=== PATIENT | female | born 1985 | race Caucasian/White ===

== ENCOUNTER 2017-08-24 23:20 | Emergency (ER) | payer BC ==
[~2017-08-24] VITALS: Ht 160 cm; Wt 58.3 kg
[~2017-08-24 23:20] MED LIST: BCPILLS PO; CHLO1TAB47 PO
[2017-08-24 23:24] VITALS: TEMP 36.8; Ht 160 cm; Wt 58.3 kg
[2017-08-25] MEDS ORDERED: SERT25TA PO
--- NOTE | 2017-08-25 00:23 | EMERGENCY ROOM VISIT NOTE ---
History First contact with patient: 23:28 Chief Complaint: NASAL PAIN/INJURY Stated Complaint: CHILD FELL ONTO HER NOSE,HARD TO BREATHE History of Present Illness The patient is a 32 year old female who presents to the Emergency Room with complaints of nasal pain. The patient states that she was getting her son ready for bed and he jumped on her, striking her nose with his leg. She reports pain in the nose which is rated an 8/10. She reports some difficulty breathing. Her states that there was some clear fluid leaking out of the nose initially. She denies any loss of consciousness, nausea/vomiting or neck pain. Review of Systems A complete 10 point review of systems was reviewed with the patient with pertinent positives and negatives as per history of present illness. All else were negative. Past Medical/Surgical History Medical Problems: (1) Abdominal pain affecting (2) Headache (3) Family History Cancer Diabetes mellitus FH: heart disease Social History Smoking Status: Never Smoker Drug Use: none Marital Status: Housing Status: lives with family Current/Historical Medications Scheduled Control Pills ( Control Pills), 1 TAB PO DAILY Sertraline (Zoloft), 25 MG PO DAILY Physical Exam Vital Signs Date Time Temp Pulse Resp B/P (MAP) Pulse Ox O2 Delivery O2 Flow Rate FiO2 08/25/17 00:29 66 18 118/72 100 08/24/17 23:24 36.8 58 20 135/92 100 Room Air Physical Exam VITALS: Vitals are noted on the nurse's note and reviewed by myself. Vital signs stable. GENERAL: This is a 32-year-old female, in no acute distress, nondiaphoretic, well-developed well-nourished. SKIN: The skin was without rashes, erythema, edema, or bruising. HEAD: Normocephalic atraumatic. EARS: External auditory canals clear, tympanic membranes pearly godoy without erythema or effusion bilaterally. EYES: Pupils equal round and reactive to light and accommodation. Conjunctivae without injection, sclerae without icterus. Extraocular movements intact. NOSE: No deformity. Tenderness over the bridge of the nose. No septal hematoma. MOUTH: Mucous membranes moist. NECK: Supple without nuchal rigidity. Cervical spine is nontender. HEART: Regular rate and rhythm without murmurs gallops or rubs. LUNGS: Clear to auscultation bilaterally without wheezes, rales or rhonchi. NEURO: Patient was alert and oriented to person place and time. Medical Decision & Procedures ER Provider Diagnostic Interpretation: CT HEAD: No acute intracranial abnormality identified. CT FACIAL: No acute facial fracture identified. No definite nasal bone fracture. Rightward deviation of the nasal septum with rightward boniness per. Small polyp versus mucous retention cyst in the right maxillary sinus. Mild mucosal thickening in the right maxillary sinus. Minimal mucosal thickening in the left maxillary sinus and right sphenoid sinus. Radiologist: Nelson Joe MD Medical Decision Differential diagnosis includes fracture, contusion, septal hematoma, among others. The patient was evaluated as above. CT of the head and facial bones were performed and read by radiology with no obvious nasal fractures. Patient was advised of this. Conservative measures were discussed with the patient. She verbalized understanding of my assessment and treatment plan and was discharged home in good condition. Medication Reconcilliation Current Medication List: was personally reviewed by me Blood Pressure Screening Patient's blood pressure: Normal blood pressure Impression Primary Impression: Nasal contusion Departure Information Dispostion Home / Self-Care Condition GOOD Referrals Jamal Kim M.D.([facility]) (PCP) Patient Instructions My [facility] Additional Instructions For pain control, you can use the following [id number] medicines (if >12 yo): - Regular strength (325mg/tab) Tylenol (acetaminophen) 2 tabs every 4-6 hours as needed. Do not exceed 12 tablets in a 24 hour period. Avoid taking more than 4 grams (4000 mg) of Tylenol per day. This includes any other sources of acetaminophen you may take on a regular basis. - Regular strength (200 mg/tab) Advil (ibuprofen) 1-2 tabs every 4-6 hours as needed. Do not exceed a dose of 3200 mg per day. Apply ice to the nose frequently to help reduce swelling and pain. Follow-up with your primary care provider or plastic surgery if there is any abnormality of the nose in 1-2 weeks.
[2017-08-25 00:29] VITALS: BP 118/72; PULSE 66; O2SAT 100
--- NOTE | 2017-08-25 06:12 | DIAGNOSTIC IMAGING REPORT ---
HEAD WITHOUT CONTRAST (CT) CT DOSE: HISTORY: Trauma head injury, nasal pain TECHNIQUE: Multiaxial CT images of the head were performed without the use of intravenous contrast. A dose lowering technique was utilized adhering to the principles of ALARA. Comparison: None. Findings: The paranasal sinuses and mastoid air cells are clear. The calvarium and skull base are intact. The ventricles and sulci are within normal limits. There is no mass, hematoma, midline shift, or acute infarct. Impression: No acute intracranial abnormality. The above report was generated using voice recognition software. It may contain grammatical, syntax or spelling errors. Electronically signed by: Foreign Davalos M.D. 08/25/2017 6:11 AM Dictated Date/Time: 08/25/2017 6:10 AM
--- NOTE | 2017-08-25 06:13 | DIAGNOSTIC IMAGING REPORT ---
FACIAL BONES-MXILLOFAC WITHOUT CT DOSE: 732.24 mGy.cm HISTORY: Trauma head injury, nasal pain TECHNIQUE: Multiaxial CT images of the maxillofacial region were performed and reformatted in the coronal plane without the use of contrast. A dose lowering technique was utilized adhering to the principles of ALARA. COMPARISON: None. FINDINGS: The visualized cervical spine, skull base, pterygoid plates, nasal bones, lamina papyracea, orbital floors, mandible, and zygomatic arches are intact. No fractures. The orbits are unremarkable. Mild scattered mucosal thickening of all major sinuses. Mild hypertrophic changes of the nasal turbinates. Moderate nasal septal displacement to the right. No acute bony abnormality. IMPRESSION: No acute bony abnormality. Mild mucosal thickening of the sinuses. The above report was generated using voice recognition software. It may contain grammatical, syntax or spelling errors. Electronically signed by: Foreign Davalos M.D. 08/25/2017 6:12 AM Dictated Date/Time: 08/25/2017 6:11 AM
== END 2017-08-25 00:30 | disposition home or self-care (01) ==
LOC: C.EDB 23:21
DX: S00.33XA Contusion of nose, initial encounter (principal); W51.XXXA Accidental striking against or bumped into by another person, initial encounter; Z80.9 Family history of malignant neoplasm, unspecified; Z83.3 Family history of diabetes mellitus; Z79.3 Long term (current) use of hormonal contraceptives; Z79.899 Other long term (current) drug therapy

== ENCOUNTER 2019-12-20 03:47 | Inpatient (IN) ==
[2019-12-20] MEDS ORDERED: OXYTOCIN 30 UNITS/500 ML BAG IV PRN ×2 (04:40→10:49)
[2019-12-20 06:07] LABS: Hematocrit (blood only) 38.3 % (37-47); Hemoglobin 13.1 g/dL (12.0-16.0); Mean Corpuscular Hemoglobin 30.3 pg (25-34); Mean Corpuscular Hgb Conc 34.2 g/dL (32-36); Mean Corpuscular Volume 88.7 fL (80-100); Mean Platelet Volume 13.4 fL (7.4-10.4); Platelet Count 127 K/uL (130-400); RDW Standard Deviation 45.7 fL (36.4-46.3); Red Blood Count 4.32 M/uL (4.2-5.4); White Blood Count 7.92 K/uL (4.8-10.8)
[2019-12-20 06:08] LABS: Platelet Estimate Decreased (Normal)
[2019-12-20] MEDS: LACTATED RINGER'S 1,000 ML IV PRN ×2 (08:21→09:38)
[2019-12-20] MEDS ORDERED: fentaNYL citrate 100 MCG/2 ML VIAL ONE (08:27)
[2019-12-20] MEDS ORDERED: ePHEDrine sulfate 50 MG/ML AMP ONE (08:28)
[2019-12-20] MEDS ORDERED: BUPIVACAINE 0.25% 30 ML VIAL ONE (08:28)
[2019-12-20] MEDS ORDERED: fentaNYL 2MCG/ML ROPIV 1.25MG/ML 100 ML BAG EPI ONE (08:28)
--- NOTE | 2019-12-20 09:24 | Anesthesiology Consultation ---
Date of Service December 20, 2019 Assessment & Plan (1) Encounter for pre-operative examination: Chart Review Chart Review: Acceptable Risk for Surgery and Acceptable Risk for Labor Epidural History Height/Weight Height: 5 ft 3 in Weight: 73.482 kg Allergies Allergy/AdvReac Type Severity Reaction Status Date / Time No Known Allergies Allergy Verified 11/27/19 23:06 Medications Home Medications Medication Instructions Recorded Confirmed Last Taken vit no.[id number] 1 tab PO DAILY 12/13/19 12/20/19 12/20/19 [ Vitamin] valacyclovir [Valtrex] 500 mg PO BID 12/13/19 12/20/19 12/20/19 Active Medications Generic Name Dose Route Start Last Admin Trade Name Freq PRN Reason Stop Dose Admin Lactated Ringer's 1,000 mls @ 125 mls/hr 12/20/19 04:40 12/20/19 08:55 Lr IV 12/22/19 04:39 999 mls/hr .Q8H PRN Infusion L&D Protocol Protocol Past Medical History Medical History Anxiety HSV (herpes simplex virus) infection Migraine Tonsillectomy planned Past Surgical History Surgical History History of colposcopy 2010 [place] teeth removed Social History Smoking Status: Never smoker Hx Alcohol Use: No Hx Substance Use: No substance use type: does not use Physical Exam Vital Signs Last Vital Signs Temp 36.4 C L 12/20/19 08:55 Pulse 68 12/20/19 09:20 Resp 22 12/20/19 08:55 BP 141/71 H 12/20/19 08:55 Pulse Ox 97 12/20/19 09:20 Testing Laboratory Results 12/20/19 04:48
[2019-12-20] MEDS ORDERED: fentaNYL 2MCG/ML ROPIV 1.25MG/ML 100 ML BAG EPI PRN (10:11)
[2019-12-20] MEDS ORDERED: NALOXONE HCL 1 MG in SODIUM CHLORIDE 0.9% 1000ML 1,000 ML IV PRN (10:11)
[2019-12-20] MEDS ORDERED: ONDANSETRON INJ 2 MG/ML 2 ML VIAL IV PRN (10:11)
[2019-12-20] MEDS ORDERED: ePHEDrine sulfate 50 MG/ML AMP IV PRN (10:11)
[2019-12-20] MEDS ORDERED: NALOXONE HCL 0.4 MG/1 ML VIAL/CARP IV PRN (10:11)
--- NOTE | 2019-12-20 10:14 | Obstetrical Progress Note ---
Date of Service December 20, 2019 Subjective Pt doing well FHR; CAT1 Ctx; 2-3min VE; 10/100/+1station Results & Data Vital Signs (Past 12 Hours) Vital Signs Temp Pulse Resp BP Pulse Ox 12/20/19 10:11 108 H 123/74 12/20/19 10:10 103 H 98 12/20/19 10:07 96 H 116/73 12/20/19 10:05 81 98 12/20/19 10:01 85 114/64 12/20/19 10:00 99 H 113/61 98 12/20/19 09:58 83 115/65 12/20/19 09:56 77 118/70 12/20/19 09:55 74 97 12/20/19 09:54 95 H 115/67 12/20/19 09:53 20 12/20/19 09:52 114 H 118/71 12/20/19 09:50 84 120/69 96 12/20/19 09:48 75 114/67 12/20/19 09:46 83 119/73 12/20/19 09:45 80 97 12/20/19 09:44 76 20 119/73 12/20/19 09:42 65 125/69 12/20/19 09:40 77 128/75 97 12/20/19 09:35 87 97 12/20/19 09:30 82 99 12/20/19 09:25 74 99 12/20/19 09:20 68 97 12/20/19 09:15 72 98 12/20/19 09:10 65 99 12/20/19 09:05 69 96 12/20/19 09:02 70 94 12/20/19 09:00 64 99 12/20/19 08:55 36.4 C L 69 22 141/71 H 97 12/20/19 07:23 101 H 114/78 12/20/19 07:02 37.1 C 66 20 133/86 12/20/19 06:23 36.0 C L 18 12/20/19 04:10 68 128/85
[2019-12-20] MEDS ORDERED: OXYCODONE/ACETAMINOPHEN 5mg/325mg TAB PO PRN (10:49)
[2019-12-20] MEDS ORDERED: bisacodyL 10 MG SUPP PR PRN (10:49)
[2019-12-20] MEDS ORDERED: DIPHTHERIA/TETANUS/PERTUSSIS 0.5 ML SYR/VIAL IM ONE (10:49)
[2019-12-20] MEDS ORDERED: SUPERCREAM 0.870% 15 GM JAR EXT PRN (10:49)
[2019-12-20] MEDS ORDERED: HYDROCORTISONE ACETATE 25 MG SUPP PR PRN (10:49)
[2019-12-20] MEDS ORDERED: ACETAMINOPHEN W/CODEINE #3 1 TAB PO PRN (10:49)
[2019-12-20] MEDS ORDERED: BENZOCAINE 20% AER SPR 82.5 GM CAN EXT PRN (10:49)
--- NOTE | 2019-12-20 11:07 | Delivery Summary ---
DATE OF OPERATION: 12/20/2019 The patient delivered a live infant in occiput anterior presentation. There was no nuchal cord. Infant was delivered, placed on mother's abdomen. Delayed cord clamp was performed. Weight and Apgars in the pediatric record. Cord blood was obtained. Placenta spontaneously delivered. Inspection of the placenta shows normal grossly looking placenta with 3-vessel cord. Estimated blood loss is 400 mL. Inspection of the perineum showed a second-degree midline laceration, which was repaired with Vicryl in layers. Rectal exam post repair showed good sphincter tone, no sutures are palpated in the rectum. All instruments were removed from the vagina and accounted for x2. Mother and baby are doing well in recovery. I attest to the content of the Intraoperative Record and any orders documented therein. Any exception s are noted below.
--- NOTE | 2019-12-20 11:53 | Anesthesia Procedure Note ---
Date of Service December 20, 2019 Anesthesia Post Epidural Note Vital Signs Vital Signs: Temp Pulse Resp BP Pulse Ox 36.4 C L 68 20 109/72 98 12/20/19 08:55 12/20/19 11:47 12/20/19 11:47 12/20/19 11:47 12/20/19 10:45 Pain Intensity Bilateral Abdomen: Pain Intensity: 0 Notes Mental Status: alert / awake / arousable and participated in evaluation Nausea / Vomiting: adequately controlled Pain: adequately controlled Airway Patency, RR, SpO2: stable & adequate BP & HR: stable & adequate Hydration State: stable & adequate Neuraxial Anesthesia: was administered and sensory block is resolving Anesthetic Complications: no major complications apparent Epidural: Removed without complications and With tip intact
[2019-12-20] MEDS: IBUPROFEN 600 MG TAB PO PRN ×2 (13:28→19:50)
[2019-12-20] MEDS ORDERED: METHYLERGONOVINE MALEATE 0.2 MG TAB PO STA (14:52)
[2019-12-20] MEDS ORDERED: miSOPROStoL 200 MCG TAB PR ONE (14:52)
[2019-12-20] MEDS ORDERED: miSOPROStoL 200 MCG TAB ONE (14:52)
[2019-12-20] MEDS ORDERED: METHYLERGONOVINE MALEATE 0.2 MG/ML AMP ONE (14:53)
--- NOTE | 2019-12-20 15:09 | Obstetrical Progress Note ---
Date of Service December 20, 2019 Subjective S; pt passed 2 large clots when she tried to void O; stable vital Uterus is firm and below umbilicus vag exam showed very little clots but gross blood in the vagina Cuevas is inserted in bladder Methergine IM given Cytotec 1000mcg given rectally Pitocin restarted Results & Data Vital Signs (Past 12 Hours) Vital Signs Temp Pulse Pulse Resp BP BP Pulse Ox 12/20/19 13:50 36.6 C 99 H 20 119/77 12/20/19 13:32 100 H 117/75 12/20/19 13:30 36.5 C 20 12/20/19 13:17 101 H 118/79 12/20/19 13:02 99 H 116/85 12/20/19 12:47 86 20 119/90 12/20/19 12:32 82 109/80 12/20/19 12:26 67 114/77 12/20/19 12:17 87 18 116/78 12/20/19 12:02 77 113/77 12/20/19 11:47 68 20 109/72 12/20/19 11:32 66 20 118/76 12/20/19 11:17 77 18 121/79 12/20/19 11:02 76 20 114/68 12/20/19 10:49 78 116/73 12/20/19 10:47 20 12/20/19 10:45 75 98 12/20/19 10:41 76 117/66 12/20/19 10:40 77 97 12/20/19 10:35 97 H 98 12/20/19 10:30 116 H 18 100 12/20/19 10:28 111 H 128/79 12/20/19 10:25 98 H 97 12/20/19 10:20 116 H 98 12/20/19 10:15 102 H 99 12/20/19 10:11 108 H 123/74 12/20/19 10:10 103 H 98 12/20/19 10:07 96 H 116/73 12/20/19 10:05 81 98 12/20/19 10:01 85 114/64 12/20/19 10:00 99 H 20 113/61 98 12/20/19 09:58 83 115/65 12/20/19 09:56 77 118/70 01/21/20 09:55 74 97 12/20/19 09:54 95 H 115/67 12/20/19 09:53 20 12/20/19 09:52 114 H 118/71 12/20/19 09:50 84 120/69 96 12/20/19 09:48 75 114/67 12/20/19 09:46 83 119/73 12/20/19 09:45 80 97 12/20/19 09:44 76 20 119/73 12/20/19 09:42 65 125/69 12/20/19 09:40 77 128/75 97 12/20/19 09:35 87 97 12/20/19 09:30 82 99 12/20/19 09:25 74 99 12/20/19 09:20 68 97 12/20/19 09:15 72 98 12/20/19 09:10 65 99 12/20/19 09:05 69 96 12/20/19 09:02 70 94 12/20/19 09:00 64 99 12/20/19 08:55 36.4 C L 69 22 141/71 H 97 12/20/19 07:23 101 H 114/78 12/20/19 07:02 37.1 C 66 20 133/86 12/20/19 06:23 36.0 C L 18 12/20/19 04:10 68 128/85
[2019-12-20] MEDS: ACETAMINOPHEN 325 MG TAB PO PRN (17:11)
[2019-12-20] MEDS ORDERED: OXYTOCIN 20 UNITS in LACTATED RINGER'S 1,000 ML IV SCH (20:45)
[2019-12-20] MEDS: DOCUSATE SODIUM 100 MG CAP PO SCH (21:00)
[2019-12-21] MEDS: ACETAMINOPHEN 325 MG TAB PO PRN ×2 (02:14→15:19)
[2019-12-21] MEDS: IBUPROFEN 600 MG TAB PO PRN ×4 (04:35→23:39)
[2019-12-21 06:45] LABS: Hematocrit (blood only) 31.5 % (37-47); Hemoglobin 10.8 g/dL (12.0-16.0); Mean Corpuscular Hemoglobin 30.7 pg (25-34); Mean Corpuscular Hgb Conc 34.3 g/dL (32-36); Mean Corpuscular Volume 89.5 fL (80-100); Mean Platelet Volume 13.2 fL (7.4-10.4); Platelet Count 105 K/uL (130-400); Platelet Estimate Decreased (Normal); RDW Coefficient of Variation 14.4 % (11.5-14.5); RDW Standard Deviation 46.8 fL (36.4-46.3); Red Blood Count 3.52 M/uL (4.2-5.4)
--- NOTE | 2019-12-21 07:31 | Obstetrical Progress Note ---
Date of Service December 21, 2019 Subjective Patient is seen and examined. She feels well, no complaints. Ambulating without dizziness Voiding without difficulty Tolerating regular diet with out N&V Bleeding is minimal No fever/ chills/ CP/ SOB/ N&V/ Leg pain Bottle feeding without problems Vital Signs Temp Pulse Pulse Resp BP BP Pulse Ox 12/21/19 04:00 36.9 C 88 18 118/78 12/20/19 23:30 36.9 C 88 18 120/78 12/20/19 19:30 36.7 C 90 18 116/80 12/20/19 16:21 83 20 130/83 12/20/19 15:30 147 H 20 135/94 12/20/19 15:00 80 20 120/78 12/20/19 13:50 36.6 C 99 H 20 119/77 12/20/19 13:32 100 H 117/75 12/20/19 13:30 36.5 C 20 12/20/19 13:17 101 H 118/79 12/20/19 13:02 99 H 116/85 12/20/19 12:47 86 20 119/90 12/20/19 12:32 82 109/80 12/20/19 12:26 67 114/77 12/20/19 12:17 87 18 116/78 12/20/19 12:02 77 113/77 12/20/19 11:47 68 20 109/72 12/20/19 11:32 66 20 118/76 12/20/19 11:17 77 18 121/79 12/20/19 11:02 76 20 114/68 12/20/19 10:49 78 116/73 12/20/19 10:47 20 12/20/19 10:45 75 98 12/20/19 10:41 76 117/66 12/20/19 10:40 77 97 12/20/19 10:35 97 H 98 12/20/19 10:30 116 H 18 100 12/20/19 10:28 111 H 128/79 12/20/19 10:25 98 H 97 12/20/19 10:20 116 H 98 12/20/19 10:15 102 H 99 12/20/19 10:11 108 H 123/74 12/20/19 10:10 103 H 98 12/20/19 10:07 96 H 116/73 12/20/19 10:05 81 98 12/20/19 10:01 85 114/64 12/20/19 10:00 99 H 20 113/61 98 12/20/19 09:58 83 115/65 12/20/19 09:56 77 118/70 12/20/19 09:55 74 97 12/20/19 09:54 95 H 115/67 12/20/19 09:53 20 12/20/19 09:52 114 H 118/71 12/20/19 09:50 84 120/69 96 12/20/19 09:48 75 114/67 12/20/19 09:46 83 119/73 12/20/19 09:45 80 97 12/20/19 09:44 76 20 119/73 12/20/19 09:42 65 125/69 12/20/19 09:40 77 128/75 97 12/20/19 09:35 87 97 12/20/19 09:30 82 99 12/20/19 09:25 74 99 12/20/19 09:20 68 97 12/20/19 09:15 72 98 12/20/19 09:10 65 99 12/20/19 09:05 69 96 12/20/19 09:02 70 94 12/20/19 09:00 64 99 12/20/19 08:55 36.4 C L 69 22 141/71 H 97 Intake and Output 12/20/19 12/21/19 12/21/19 22:59 06:59 14:59 Intake Total 402.083 / 1315.949 Output Total 350 / 1100 Balance 52.083 / 215.949 Intake: IV 402.083 / 1315.949 Lr 1,000 ml @ 125 mls/hr IV . 0 / 913.866 Q8H PRN Rx#:[id number] Pitocin 20 Units In Lr 1,000 ml 402.083 / 402.083 @ 125 mls/hr IV .Q8H1M DARLENE Rx# :[id number] Output: Urine Amount (Catheter) 350 / 350 Cuevas/Indwelling 350 / 350 Lab Results 12/20/19 12/21/19 Range/Units 04:48 05:44 WBC 7.92 9.50 (4.8-10.8) K/uL RBC 4.32 3.52 L (4.2-5.4) M/uL Hgb 13.1 10.8 L (12.0-16.0) g/dL Hct 38.3 31.5 L (37-47) % MCV 88.7 89.5 (80-100) fL MCH 30.3 30.7 (25-34) pg MCHC 34.2 34.3 (32-36) g/dL RDW Std Deviation 45.7 46.8 H (36.4-46.3) fL RDW Coeff of Swapna 14.0 14.4 (11.5-14.5) % Plt Count 127 L 105 L (130-400) K/uL MPV 13.4 H 13.2 H (7.4-10.4) fL Platelet Estimate Decreased L Decreased L (Normal) PE: General: Alert, orientedx3, NAD Abd: soft, NT, fundus firm, below Umbilicus Perineum intact, Lochia rubra minimal Ext; NT, no edema AP: 34 yo s/p , ppd# 1 VSS Afebrile doing well Continue routine care All questions were answered D/C home tomorrow Results & Data Vital Signs (Past 12 Hours) Vital Signs Temp Pulse Resp BP 12/21/19 04:00 36.9 C 88 18 118/78 12/20/19 23:30 36.9 C 88 18 120/78
[2019-12-21] MEDS: FERROUS SULFATE 325 MG TAB PO SCH (07:49)
[2019-12-21] MEDS: PRENATAL VITAMIN 1 TAB PO SCH (07:49)
[2019-12-21] MEDS: DOCUSATE SODIUM 100 MG CAP PO SCH ×2 (07:49→20:23)
[2019-12-21] MEDS ORDERED: bisacodyL 5 MG TABEC PO SCH (20:00)
[2019-12-22 06:28] LABS: Hematocrit (blood only) 29.2 % (37-47); Hemoglobin 9.7 g/dL (12.0-16.0)
[2019-12-22] MEDS: IBUPROFEN 600 MG TAB PO PRN (07:57)
[2019-12-22] MEDS: DOCUSATE SODIUM 100 MG CAP PO SCH (07:58)
[2019-12-22] MEDS: FERROUS SULFATE 325 MG TAB PO SCH (07:58)
[2019-12-22] MEDS: PRENATAL VITAMIN 1 TAB PO SCH (07:58)
== END 2019-12-22 12:41 | disposition home or self-care (01) | DRG 807 ==
LOC: OPB 03:47 → 4S1 03:50 → 4S2 13:45